=== PATIENT | female | born 1930 | race Caucasian/White ===

== ENCOUNTER 2016-06-23 16:24 | Emergency (ER) | payer MEDICARE ==
[2016-06-23 17:01] LABS: #Eosinphils 0.3 thou/uL (0.0-0.7); #Lymphocytes 1.5 thou/uL (1.20-3.40); #Monocytes 0.5 thou/uL (0.11-0.59); #Neutrophils 2.5 thou/uL (1.40-6.50); %Eosinophils 6.3 % (0.0-10.0); %Monocytes 9.8 % (0.0-10.0); Hematocrit 41.4 % (36.0-47.0); Mean Platelet Volume 10.6 fL (7.4-10.4); Red Blood Cell (RBC) Count 4.46 mill/uL (4.20-5.40); White Blood Cell (WBC) Count 4.8 thou/uL (4.8-10.8)
[2016-06-23 17:16] LABS: ALT (SGPT) 20 U/L (0-55); AST (SGOT) 24 U/L (5-34); Alkaline Phosphatase 84 U/L (40-150); Anion Gap 11 mmol/L (10-20); BUN (Urea Nitrogen) 18 mg/dL (9.8-20.1); Bilirubin, Total 0.3 mg/dL (0.2-1.2); Calc. Creatinine Clearance 0 mL/min (70-130); Calcium 9.4 mg/dL (7.8-10.44); Carbon Dioxide 25 mmol/L (23-31); Chloride 109 mmol/L (98-107); Estimated GFR-MDRD 69; Globulin 3.6 g/dL (2.4-3.5); Protein, Total 7.7 g/dL (5.8-8.1)
[2016-06-23 17:22] LABS: Troponin I 0.017 ng/mL (< 0.028)
--- NOTE | 2016-06-23 19:49 | RAD ---
PORTABLE CHEST 06/23/16 An AP portable film at 1654 is compared with a 08/25/15 study. The heart is mildly enlarged but there are no congestive changes or pleural effusions. The lungs are clear. Faint calcification is seen in the aortic arch. There is some mild degenerative changes in t he right AC joint. IMPRESSION: Mild cardiomegaly but no acute findings. POS: HOME
== END 2016-06-23 18:17 | disposition short-term general hospital (02) ==
LOC: BURERS 16:24
DX: I48.92 Unspecified atrial flutter (principal); I10 Essential (primary) hypertension; Z79.82 Long term (current) use of aspirin; Z79.899 Other long term (current) drug therapy
CPT/HCPCS: 71010; 80053; 82553; 83880; 84484; 85025; 93005; 94760; 96374; J3490

== ENCOUNTER 2016-08-10 14:45 | Outpatient (CLI) | payer MEDICARE ==
[2016-08-10 15:42] LABS: ALT (SGPT) 17 U/L (0-55); AST (SGOT) 22 U/L (5-34); Albumin 4.2 g/dL (3.4-4.8); Alkaline Phosphatase 82 U/L (40-150); Anion Gap 11 mmol/L (10-20); BUN (Urea Nitrogen) 15 mg/dL (9.8-20.1); Bilirubin, Total 0.7 mg/dL (0.2-1.2); Calc. Creatinine Clearance 0 mL/min (70-130); Calcium 9.7 mg/dL (7.8-10.44); Carbon Dioxide 30 mmol/L (23-31); Cardiac Risk 2.7 (Less than 4.5); Chloride 107 mmol/L (98-107); Cholesterol 138 mg/dL (< 200 Desired); Estimated GFR-MDRD 77; Globulin 2.8 g/dL (2.4-3.5); Glucose 85 mg/dL (83-110); HDL Cholesterol 52 mg/dL (>60 Neg Risk); LDL Cholesterol, Calculated 72 mg/dL; Potassium 4.9 mmol/L (3.5-5.1); Sodium 143 mmol/L (136-145); Triglycerides 72 mg/dL (Less than 150)
[2016-08-10 16:03] LABS: #Basophils 0.1 thou/uL (0.0-0.2); #Eosinphils 0.6 thou/uL (0.0-0.7); #Lymphocytes 1.3 thou/uL (1.20-3.40); #Monocytes 0.4 thou/uL (0.11-0.59); #Neutrophils 1.7 thou/uL (1.40-6.50); %Basophils 1.3 % (0.0-1.0); %Lymphocytes 32.3 % (21.0-51.0); %Monocytes 10.8 % (0.0-10.0); %Neutrophils 41.6 % (42.0-75.0); Hemoglobin 13.4 g/dL (12.0-16.0); Mean Corpuscular HGB CONC 32.5 g/dL (32.0-36.0); Mean Corpuscular Volume 98.3 fl (81.0-99.0); Mean Platelet Volume 11.6 fL (7.4-10.4); Platelet Count 125 thou/uL (130-400); RBC Distribution Width 12.7 % (11.5-14.5); Red Blood Cell (RBC) Count 4.19 mill/uL (4.20-5.40)
== END 2016-08-10 14:46 | disposition home or self-care (01) ==
LOC: HPCALD 14:45
PROVIDERS: ATTEND Family Medicine
DX: I10 Essential (primary) hypertension (principal)
CPT/HCPCS: 36415; 80053; 80061; 84443; 85025

== ENCOUNTER 2017-02-22 15:07 | Outpatient (CLI) | payer MEDICARE ==
--- NOTE | 2017-02-22 22:42 | RAD ---
LUMBAR SPINE THREE VIEWS: Date: 02-22-17 FINDINGS: Due to the patient's anatomy and overlying gas and fecal material, it is difficult to see the verteb reuben well. S1 seems to be a somewhat transitional vertebra. The numbering scheme used on this study w as placed on the images provided. There is a very prominent anterolisthesis of L3 on L4 with disc space narrowing at this level. Mild disc space narrowing is present at L4-5 with a minimal anterolisthesis of L4 on L5. The L5-S1 disc s eems partially fused. There are prominent anterior osteophytes at most lumbar levels, especially abo ve L3. Disc space narrowing is present to some degree at all lumbar levels. The SI joints symmetrica l. 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 It would not surprise me if there is some significant spinal stenosis at sever al of these levels. POS: HOME
== END 2017-02-22 15:08 | disposition home or self-care (01) ==
LOC: BURRAD 15:07
PROVIDERS: ATTEND Family Medicine
DX: M54.5 Low back pain (principal); M43.16 Spondylolisthesis, lumbar region; M46.86 Other specified inflammatory spondylopathies, lumbar region
CPT/HCPCS: 72100

== ENCOUNTER 2017-06-16 09:59 | Outpatient (CLI) | payer MEDICARE ==
--- NOTE | 2017-06-16 21:29 | CT ---
CT ABDOMEN AND PELVIS WITH CONTRAST 06/16/[address] of the abdomen and pelvis was performed for evaluation of right lower quadrant pain. Axial slices were acquired, then coronal and sagittal reconstructions were done. The lung bases are clear except for some dependent atelectasis. A calcified granuloma is seen in the right middle lobe. The liver, spleen, pancreas, gallbladder, adrenal glands and kidneys showed no acute findings. The ao rta is normal in caliber. There is some arteriosclerotic change in it. There might be some narrowing at the origin of the celiac artery. The bowel shows no sign of distention, inflammatory change, or wa ll thickening. There is no sign of appendicitis or diverticulitis. No mesenteric adenopathy of concer n was seen. No free air or free fluid was present. CT of the pelvis showed no pelvic masses, fluid collections, or inflammatory changes. The patient has significant and severe degenerative change at the spine. There has been prior laminec tomies in the lower lumbar spine. There s a very prominent anterolisthesis of L2 on L3, and to a less er extent L3 on L4. IMPRESSION: 1. No direct cause for the patient's right lower pain was seen. The appendix appears normal. 2. Severe degenerative changes of the spine along with prominent anterolisthesis at L2-L3 and L3 -L4. 3. Possible narrowing at the origin of the celiac artery, but the artery appears to fill well wi th contrast. POS: HOME
== END 2017-06-16 10:00 | disposition home or self-care (01) ==
LOC: BURCT 09:59
PROVIDERS: ATTEND Family Medicine
DX: R10.31 Right lower quadrant pain (principal); M47.896 Other spondylosis, lumbar region; M43.16 Spondylolisthesis, lumbar region
CPT/HCPCS: 74177

== ENCOUNTER 2018-12-08 13:55 | Emergency (ER) | payer MEDICARE ==
[2018-12-08 14:21] LABS: Bilirubin Small (Negative); Blood, Urine Large (Negative); Clarity Turbid (Clear); Glucose, Urine (Dipstick) 100 mg/dL (Negative); Leukocyte Small (Negative); Nitrite Positive (Negative); Protein, Urine (Dipstick) > or equal to 300 mg/dL (Neg-Trace)
[2018-12-08 14:25] LABS: Bacteria/HPF 1+ HPF (None Seen); Mucous/LPF Few LPF (<2+); RBC/HPF Greater than 50 HPF (0-3); Squamous Epithelial 0-3 HPF (0-3)
== END 2018-12-08 14:35 | disposition home or self-care (01) ==
LOC: BURERS 13:55
DX: N30.00 Acute cystitis without hematuria (principal); I10 Essential (primary) hypertension; Z79.899 Other long term (current) drug therapy
CPT/HCPCS: 81003; 81015; 87077; 87086; 87186; 99283

== ENCOUNTER 2019-07-04 12:58 | Outpatient (CLI) | payer MEDICARE ==
--- NOTE | 2019-07-04 13:51 | ULT ---
Sonogram right upper quadrant HISTORY: Right upper quadrant pain. FINDINGS: Shadowing echogenic material layers within the dependent portion of the gallbladder lumen. There is n o gallbladder wall thickening or pericholecystic fluid. Common duct is upper limits of normal is 0.7 cm. Liver has a normal appearance without focal mass or intrahepatic biliary dilatation. No free fluid. IMPRESSION: Biliary sludge within the gallbladder is evidence of chronic gallbladder dyskinesis. No e vidence of acute biliary obstruction.
== END 2019-07-04 12:59 | disposition home or self-care (01) ==
LOC: BURULT 12:58
PROVIDERS: ATTEND Family Medicine
DX: R10.13 Epigastric pain (principal); K82.8 Other specified diseases of gallbladder
CPT/HCPCS: 76705